=== PATIENT | female | born 1995 | race Caucasian/White ===

== ENCOUNTER 2017-08-09 17:09 | Emergency (ER) | payer BC ==
[2017-08-09 17:29] VITALS: BP 146/90
--- NOTE | 2017-08-09 18:45 | UC ---
Respiratory Complaint HPI - HPI Summary HPI Summary: 21 y/o female with h/o cough x 4 days increasing, difficulty sleeping, no pain, fever, chills, ? 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 - History of Current Complaint Chief Complaint: UCRespiratory Stated Complaint: COUGH Time Seen by Provider: 08/09/17 18:22 Hx Obtained From: Patient, Family/Director Of Valuation - boyfriend Hx Last Menstrual Period: 07/26/17 ?: No Onset/Duration: Sudden Onset, Lasting Days Timing: Intermittent Episodes Severity Initially: Mild Severity Currently: Moderate Aggravating Factors: Recumbent Position Alleviating Factors: Upright Position - Allergies/Home Medications Allergies/Adverse Reactions: Allergies Allergy/AdvReac Type Severity Reaction Status Date / Time Penicillins Allergy Hives Verified 08/09/17 17:29 Home Medications: Home Medications Oral Contraceptives DAILY 08/09/17 [History] PMH/Surg Hx/FS Hx/Imm Hx Previously Healthy: Yes - Surgical History Surgical History: None - Social History Alcohol Use: Occasionally Substance Use Type: None Smoking Status (MU): Never Smoked Tobacco Review of Systems Respiratory: Shortness Of Breath, Cough Is Patient Immunocompromised?: No All Other Systems Reviewed And Are Negative: Yes Physical Exam Triage Information Reviewed: Yes Appearance: Well-Appearing, No Pain Distress, Well-Nourished Vital Signs: Initial Vital Signs Temp 97.8 F 08/09/17 17:25 Pulse 74 08/09/17 17:25 Resp 14 08/09/17 17:25 BP 146/90 08/09/17 17:25 Pulse Ox 100 08/09/17 17:25 Vital Signs Reviewed: Yes Eyes: Positive: Conjunctiva Clear ENT: Positive: Pharynx normal, TMs normal. Negative: Pharyngeal erythema, Nasal congestion - ? mild fluid behimd TMs, TM bulging, TM dull, TM red Neck: Positive: Supple, Nontender, No Lymphadenopathy Respiratory Exam: Normal Respiratory: Positive: Chest non-tender, Lungs clear, Normal breath sounds, No respiratory distress, No accessory muscle use. Negative: Crackles, Rhonchi, Stridor, Wheezing Cardiovascular: Positive: RRR, No Murmur, Pulses Normal UC Diagnostic Evaluation - Laboratory O2 Sat by Pulse Oximetry: 100 Respiratory Course/Dx - Course Course Of Treatment: viral URI, cough med with codeine given for sleep, allergy medication throughot day, OTcs for symptoms - Differential Dx/Diagnosis Differential Diagnosis/HQI/PQRI: Asthma, Bronchitis, Influenza, Sinusitis Provider Diagnoses: URI Discharge - Discharge Plan Condition: Good Disposition: HOME Prescriptions: Guaifenesin-Codeine [Codeine/Guaifenesin 100-10 mg/5Ml] 1 flo PO BEDTIME PRN #5 dose MDD 2 doses PRN Reason: cough Patient Education Materials: Upper Respiratory Infection (ED) Referrals: No Primary Care Phys,NOPCP [Primary Care Provider] - Additional Instructions: - cough medication with codeine for nighttime coughing - increase fluid intake - motrin/ tylenol for pain/ fever - Claritin/ allergy medication during the day - follow up with primary if no improvement within 3-5 days
== END 2017-08-09 18:51 | disposition home or self-care (01) ==
LOC: UCCORT 17:09
DX: J06.9 Acute upper respiratory infection, unspecified (principal); Z88.0 Allergy status to penicillin
CPT/HCPCS: 99202; G0463

== ENCOUNTER 2018-05-12 12:47 | Emergency (ER) | payer BC ==
[2018-05-12 13:39] VITALS: BP 136/71
--- NOTE | 2018-05-12 14:56 | UC ---
UC General HPI - HPI Summary HPI Summary: Patient is complaining of two-week history of frequent urination and a sense of urgency when she has to use the bathroom. Also notes some mild burning. She denies any associated hesitancy. With this, she has had some episodic sharp shooting pains in her "crotch" area. Patient also reports having had 2 bouts of incontinence with this .She denies any associated vaginal discharge or sores as well as risk or concern for pelvic infection. She denies any associated fever or abdominal pain. She states she did have a UTI once in the past that she let goes along with she and up with some blood in her urine. - History of Current Complaint Chief Complaint: UCGeneralIllness Stated Complaint: URINARY Time Seen by Provider: 05/12/18 14:49 Hx Last Menstrual Period: 05/03/18 Pain Intensity: 0 Aggravating: nothing Alleviating: nothing Associated Signs & Symptoms: Negative: Abdominal Pain, Fever - Allergy/Home Medications Allergies/Adverse Reactions: Allergies Allergy/AdvReac Type Severity Reaction Status Date / Time Penicillins Allergy Hives Verified 05/12/18 13:34 PMH/Surg Hx/FS Hx/Imm Hx - Additional Past Medical History Additional PMH: UTIx1 - Surgical History Surgical History: None - Family History Known Family History: Positive: None - Social History Occupation: Student Alcohol Use: Occasionally Substance Use Type: None Smoking Status (MU): Never Smoked Tobacco - Immunization History Vaccination Up to Date: Yes Review of Systems Constitutional: Negative Skin: Negative Eyes: Negative ENT: Negative Respiratory: Negative Cardiovascular: Negative Gastrointestinal: Negative Genitourinary: Dysuria, Frequency, Urgency Motor: Negative Neurovascular: Negative Musculoskeletal: Negative Neurological: Negative Psychological: Negative Is Patient Immunocompromised?: No All Other Systems Reviewed And Are Negative: Yes Physical Exam Triage Information Reviewed: Yes Appearance: Well-Appearing Vital Signs: Initial Vital Signs Temp 98.5 F 05/12/18 13:35 Pulse 73 05/12/18 13:35 Resp 16 05/12/18 13:35 BP 136/71 05/12/18 13:35 Pulse Ox 100 05/12/18 13:35 Vital Signs Reviewed: Yes Eyes: Positive: Conjunctiva Clear ENT: Positive: Normal ENT inspection Neck: Positive: Supple, Nontender, No Lymphadenopathy Respiratory: Positive: Lungs clear, Normal breath sounds Cardiovascular: Positive: RRR, No Murmur, Pulses Normal Abdomen Description: Positive: Nontender, No Organomegaly, Soft. Negative: CVA Tenderness (R), CVA Tenderness (L), Distended, Guarding Bowel Sounds: Positive: Present Pelvic Exam: Positive: Other - Declined by patient-wants to defer to [facility] follow- up. Musculoskeletal: Positive: ROM Intact Neurological: Positive: Alert Psychological: Positive: Age Appropriate Behavior Skin Exam: Normal Course/Dx - Course Course Of Treatment: The UA showed trace leuk esterase only. A culture is pending. Pelvic exam here was declined by the patient. We'll treat with a 3 day course of Bactrim in the event that this is a UTI; however, given the patient history I think that interstitial cystitis or vaginismus are also possibilities as well thus I'm going to refer the patient to [facility] for follow-up. 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 she is requesting a referral to somebody in [place] for the [facility] follow-up. - Differential Dx - Multi-Symptom Provider Diagnoses: Dysuria, rule out UTI, possible interstitial cystitis versus vaginismus Discharge - Sign-Out/Discharge Documenting (check all that apply): Patient Departure All imaging exams completed and their final reports reviewed: No Studies - Discharge Plan Condition: Stable Disposition: HOME Prescriptions: Sulfamethox/Trimethoprim DS* [Bactrim DS 800/160 TAB*] 1 tab PO BID 3 Days #6 tab Patient Education Materials: Dysuria (ED), Interstitial Cystitis (ED) Referrals: No Primary Care Phys,NOPCP [Primary Care Provider] - Additional Instructions: DIAGNOSIS: DYSURIA. RULE OUT UTI. POSSIBLE INTERSTITIAL CYSTITIS VS VAGINISMUS - Billing Disposition and Condition Condition: STABLE Disposition: Home
== END 2018-05-12 15:22 | disposition home or self-care (01) ==
LOC: UCCORT 12:47
DX: R30.0 Dysuria (principal); Z87.440 Personal history of urinary (tract) infections; Z88.0 Allergy status to penicillin
CPT/HCPCS: 81003; 84702; 87086; 99212; G0463